=== PATIENT | male | born 1960 | race Caucasian/White ===

== ENCOUNTER 2017-04-26 17:28 | Inpatient (IN) | payer MEDICARE, MEDICAID ==
[~2017-04-26] VITALS: Ht 167.6 cm; Wt 100.7 kg
[2017-04-26 18:12] LABS: BASO # 0.1 x10^3/uL (0.0-0.2); BASO % 1 % (0-3); EOS # 0.1 x10^3/uL (0.0-0.7); EOS % 1 % (0-3); HEMATOCRIT 39.5 % (39.0-53.0); HEMOGLOBIN 13.2 g/dL (13.0-17.5); LYMPH # 2.2 x10^3/uL (1.0-4.8); LYMPH % 20 % (24-48); MEAN CORPUSCULAR HEMOGLOBIN 31 pg (25-35); MEAN CORPUSCULAR HGB CONC 33 g/dL (31-37); MEAN CORPUSCULAR VOLUME 92 fL (79-100); MONO # 0.8 x10^3/uL (0.0-1.1); MONO % 8 % (0-9); NEUT # 7.7 x10^3uL (1.8-7.7); NEUT % 71 % (31-73); PLATELET COUNT 381 x10^3/uL (140-400); RED BLOOD COUNT 4.32 x10^6/uL (4.30-5.70); RED CELL DISTRIBUTION WIDTH 13.1 % (11.5-14.5); WHITE BLOOD COUNT 10.9 x10^3/uL (4.0-11.0)
--- NOTE | 2017-04-26 18:13 | PHYS DOC ---
General Chief Complaint: ABDOMINAL PAIN Stated Complaint: MULTI-ABDOMINAL PAIN Time Seen by MD: 18:11 Source: patient, family Exam Limitations: no limitations Problems: History of Present Illness Initial Comments 56/M to ED c/o epigastric pain. Patient signed out to me at shift change by Dr. Loredo. Patient states last night around 2200 at rest sudden onset epigastric/upper abdominal pain and worsening shortness of breath. No cardiac history, has chronic respiratory failure due to COPD uses 2.5 L O2 nasal cannula at home at all times. No concomitant diaphoresis arm or neck discomfort, no nausea vomiting or diarrhea. On arrival heart rate 189 bpm irregular, blood pressure 103/94 92% on home O2. No prior cardiac workup or tachyarrhythmia PCP is Dr. Talbert. Timing/Duration: other (about 2200 last night) Severity: severe Associated Symptoms: chest pain, malaise, shortness of breath, other Allergies: Coded Allergies: ibuprofen (Verified Allergy, Unknown, 04/26/17) Past Medical History Medical History: COPD, high cholesterol, hypertension, other (chronic respiratory failure uses 2.5 L O2) Surgical History: noncontributory Psychosocial History: anxiety Social History Smoker: cigarettes Alcohol: none Drugs: none Review of Systems Constitutional: denies chills, denies diaphoresis, denies fever, malaise Respiratory: see HPI Cardiovascular: see HPI, denies syncope Gastrointestinal: abdominal pain, denies diarrhea, nausea, denies vomiting Musculoskeletal: denies back pain, denies joint swelling, denies neck pain Psychiatric/Neurological: denies headache, denies numbness, denies paresthesia Hematologic/Lymphatic: denies blood clots, denies easy bleeding, denies easy bruising Physical Exam General Appearance: moderate distress (dyspnea and epigastric discomfort) Ear, Nose, Throat: hearing grossly normal, normal ENT inspection (pursed lip breathing), normal pharynx Neck: non-tender, supple Respiratory: respiratory distress, accessory muscle use, other (decreased breath sounds with wheezes bilaterally and rales at the bases chest nontender) Cardiovascular: normal peripheral pulses, tachycardia, irregularly irregular Gastrointestinal: other (initially soft with mild epigastric tenderness nondistended) Back: no CVA tenderness, no vertebral tenderness Extremities: non-tender, normal inspection, no pedal edema, no calf tenderness Neurologic/Psychiatric: manager ethics II-XII nml as tested, no motor/sensory deficits, alert, normal mood/affect, oriented x 3 Skin: normal color, diaphoresis Orders, Labs, Meds EKG: A. fib with RVR 170 beats per minute interpreted by me. ABG: pH 7.496, pCO2 54.7, pO2 55, BE 19, HCO3 42.2, sO2 90%, fIO2 32 Trop < 0.017, lact 3.2, mag 1.5, BNP 2639 Cardizem 10 mg IV bolus and drip initiated with good rate response coming down to low 100s, blood pressure dropped to systolic 90 and normal saline bolus initiated. 1944: I discussed the patient with on-call geosciences faculty member Dr. Schafer who recommends decreasing Cardizem drip to 10 mg an hour and adding digoxin 2.5 every 6 hours. Recommends inpatient admission at [facility]. 1949: I discussed the patient with Dr. Carmichael who accepts inpatient admission. 2144: EMS arrived to take patient up the hill, on recheck his abdomen is now very distended and exquisitely tender. CT abdomen and pelvis necessary will hold in ED. PATIENT: BERNADINE SOLIS ACCOUNT: [id number] : 1960 LOCATION: ER AGE: 56 SEX: M EXAM STATUS: REG ER ORD. PHYSICIAN: LAVELLE EDWARDS DO REASON: abd pain/distension PROCEDURE: CT ABD PELV W/ IV CONTRST ONLY CT ABD PELV W/ IV CONTRST ONLY dated 04/26/2017 9:53 PM Indication: Abdominal pain, distentionAbdominal pain and distension, mostly left side
no hx of abdominal surgeries in the past
gave Omni 300 75ml iv - tolerated well
no previous for comparison. Comparison: None Technique: Contiguous axial imaging of the abdomen and pelvis performed after the administration of 75 cc Isovue-370. One or more of the following individualized dose reduction techniques were utilized for this examination: 1. Automated exposure control 2. Adjustment of the mA and/or kV according to patient size 3. Use of iterative reconstruction technique Findings: Limited images of lung bases show prominent reticular nodular markings along the bronchovascular bundles of the bilateral lower lobes. There is diffuse bronchial wall thickening. Heart size upper limits of normal. No pleural or pericardial effusion. Liver, spleen, pancreas, adrenal glands, gallbladder and kidneys are unremarkable. No hydronephrosis. Unopacified GI tract normal in caliber and contour. No focal bowel wall thickening. No inflammatory stranding in the mesentery. The appendix is normal in caliber. No ascites or lymphadenopathy. Abdominal aorta normal in caliber. A few scattered diverticula within the distal colon. Images of the pelvis a nondistended urinary bladder. Prostate gland upper limits of normal in size. No free pelvic fluid or pelvic lymphadenopathy. Bone windows show no acute findings. Mild multilevel spondylosis. IMPRESSION: 1. No acute abnormality of abdomen or pelvis. Normal appendix. 2. Diverticulosis with no evidence of acute diverticulitis. 3. Prominent reticular nodular markings at both lung bases with diffuse bronchial wall thickening. Consider bronchopneumonia or atypical infection. Chronic aspiration is another consideration. Electronically signed by: Jose Goode MD (04/26/2017 11:34 PM) [facility] DICTATED AND SIGNED BY: JOSE GOODE MD DATE: 04/26/17 3504 CC: LARRY CARMICHAEL MD; LAVELLE EDWARDS DO ~ Impressions: Atrial Fibrillation with RVR CP Abdominal Pain COPD with CRF uses 2.5L O2 CHF Atypical bronchitis Hypomagnesemia LAVELLE EDWARDS DO Apr 26, 2017 18:13
[2017-04-26] MEDS ORDERED: IV DEXTROSE 5% 100 ML IV ONE (18:14)
[2017-04-26] MEDS ORDERED: dilTIAZem 25 MG/5 ML VIAL IVP ONE (18:15)
[2017-04-26] MEDS ORDERED: dilTIAZem VIAL 125 MG in IV DEXTROSE 5% 100 ML IV ONE (18:15)
[2017-04-26] MEDS ORDERED: ASPIRIN 81 MG TAB.CHEW PO ONE (18:15)
[2017-04-26 18:51] LABS: ALBUMIN 3.5 g/dL (3.4-5.0); ALBUMIN/GLOBULIN RATIO 0.9 (1.0-1.7); CREATININE 0.8 mg/dL (0.7-1.3); MAGNESIUM 1.5 mg/dL (1.8-2.4); POTASSIUM 3.9 mmol/L (3.5-5.1); TOTAL BILIRUBIN 0.2 mg/dL (0.2-1.0); TOTAL PROTEIN 7.4 g/dL (6.4-8.2)
[2017-04-26] MEDS: IPRATRPIUM/ALBUTEROL 0.5/2.5MG 3 ML NEBU. NEB SCH (20:00)
[2017-04-26 20:09] LABS: BGAS PH 7.5 (7.35-7.46)
--- NOTE | 2017-04-26 20:12 | EKG ---
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
[2017-04-26] MEDS ORDERED: DIGOXIN IV 500 MCG/2 ML AMPUL. IV ONE (20:30)
[2017-04-26] MEDS: ENOXAPARIN ** NOTE DOSE ** SYRINGE SQ SCH (21:00)
[2017-04-26] MEDS ORDERED: IV NORMAL SALINE 1,000ML 1,000 ML IV ONE (21:15)
[2017-04-26] MEDS ORDERED: IOHEXOL 300 MG/ML 75 ML VIAL. IV ONE (22:15)
[2017-04-26] MEDS ORDERED: CONTRAST GIVEN MC PRN (22:15)
--- NOTE | 2017-04-26 23:37 | RAD ---
CT ABD PELV W/ IV CONTRST ONLY dated 04/26/2017 9:53 PM Indication: Abdominal pain, distentionAbdominal pain and distension, mostly left side
no hx of abdominal surgeries in the past
gave Omni 300 75ml iv - tolerated well
no previous for comparison. Comparison: None Technique: Contiguous axial imaging of the abdomen and pelvis performed after the administration of 75 cc Isovue-370. One or more of the following individualized dose reduction techniques were utilized for this examination: 1. Automated exposure control 2. Adjustment of the mA and/or kV according to patient size 3. Use of iterative reconstruction technique Findings: Limited images of lung bases show prominent reticular nodular markings along the bronchovascular bundles of the bilateral lower lobes. There is diffuse bronchial wall thickening. Heart size upper limits of normal. No pleural or pericardial effusion. Liver, spleen, pancreas, adrenal glands, gallbladder and kidneys are unremarkable. No hydronephrosis. Unopacified GI tract normal in caliber and contour. No focal bowel wall thickening. No inflammatory stranding in the mesentery. The appendix is normal in caliber. No ascites or lymphadenopathy. Abdominal aorta normal in caliber. A few scattered diverticula within the distal colon. Images of the pelvis a nondistended urinary bladder. Prostate gland upper limits of normal in size. No free pelvic fluid or pelvic lymphadenopathy. Bone windows show no acute findings. Mild multilevel spondylosis. IMPRESSION: 1. No acute abnormality of abdomen or pelvis. Normal appendix. 2. Diverticulosis with no evidence of acute diverticulitis. 3. Prominent reticular nodular markings at both lung bases with diffuse bronchial wall thickening. Consider bronchopneumonia or atypical infection. Chronic aspiration is another consideration. Electronically signed by: Jose Goode MD (04/26/2017 11:34 PM) [facility]
[2017-04-26 23:46] LABS: BARBITURATES NEG (NEG); BENZODIAZEPINES POS (NEG); CANNABINOIDS NEG (NEG); COCAINE NEG (NEG); METHADONE NEG (NEG); OPIATES NEG (NEG); PHENCYCLIDINE NEG (NEG)
[2017-04-26 23:47] LABS: AMPHETAMINE/METHAMPHETAMINE NEG (NEG)
[2017-04-26] MEDS ORDERED: AZITHROMYCIN 500 MG VIAL. IV ONE (23:48)
[2017-04-26] MEDS ORDERED: IV NORMAL SALINE 250ML 250 ML ONE (23:49)
[2017-04-27] VITALS (12 sets, daily range): BP systolic 110–155; BP diastolic 66–95
[2017-04-27] MEDS ORDERED: AZITHROMYCIN 500 MG in IV NORMAL SALINE 250ML 250 ML IV ONE ×2
[2017-04-27] MEDS ORDERED: DIGOXIN IV 500 MCG/2 ML AMPUL. IV ONE ×2 (02:00→08:00)
[2017-04-27] MEDS ORDERED: LORazepam 0.5 MG TABLET PO PRN (02:30)
[2017-04-27] MEDS ORDERED: LISI1TAB5 PO (05:14)
[2017-04-27] MEDS ORDERED: ESCITALOPRAM OX20 MG PO (05:14)
[2017-04-27] MEDS ORDERED: ALEN35TA6 PO (05:14)
[2017-04-27] MEDS ORDERED: DIAZ10TA4 PO (05:14)
[2017-04-27] MEDS: IPRATRPIUM/ALBUTEROL 0.5/2.5MG 3 ML NEBU. NEB SCH ×3 (05:38→15:06)
[2017-04-27] MEDS ORDERED: dilTIAZem VIAL 125 MG in IV DEXTROSE 5% 100 ML IV PRN (06:00)
[2017-04-27 06:39] LABS: BASO # 0.1 x10^3/uL (0.0-0.2); BASO % 1 % (0-3); EOS # 0.1 x10^3/uL (0.0-0.7); EOS % 1 % (0-3); HEMATOCRIT 34.3 % (39.0-53.0); HEMOGLOBIN 11.2 g/dL (13.0-17.5); LYMPH # 1.9 x10^3/uL (1.0-4.8); LYMPH % 18 % (24-48); MEAN CORPUSCULAR HEMOGLOBIN 30 pg (25-35); MEAN CORPUSCULAR HGB CONC 33 g/dL (31-37); MEAN CORPUSCULAR VOLUME 91 fL (79-100); MONO # 0.8 x10^3/uL (0.0-1.1); MONO % 8 % (0-9); NEUT # 7.9 x10^3uL (1.8-7.7); NEUT % 73 % (31-73); PLATELET COUNT 301 x10^3/uL (140-400); RED BLOOD COUNT 3.79 x10^6/uL (4.30-5.70); RED CELL DISTRIBUTION WIDTH 13.4 % (11.5-14.5); WHITE BLOOD COUNT 10.8 x10^3/uL (4.0-11.0)
[2017-04-27 06:44] LABS: ALBUMIN 2.9 g/dL (3.4-5.0); ALBUMIN/GLOBULIN RATIO 0.8 (1.0-1.7); CALCIUM 7.9 mg/dL (8.5-10.1); CREATININE 0.7 mg/dL (0.7-1.3); GFR 116.7; POTASSIUM 3.6 mmol/L (3.5-5.1); TOTAL BILIRUBIN 0.3 mg/dL (0.2-1.0); TOTAL PROTEIN 6.4 g/dL (6.4-8.2)
--- NOTE | 2017-04-27 08:10 | RAD ---
Single view of the Chest 04/26/2017 7:55 PM Indication: upper abdominal pain Comparison: None Findings: There is no focal consolidation or infiltrate identified. There is no effusion or pneumothorax. The cardiomediastinal silhouette and pulmonary vasculature are within normal limits. No osseous abnormality is identified. Impression: No evidence of acute cardiopulmonary process.
[2017-04-27] MEDS ORDERED: MAGNESIUM CHLORIDE ER 64 MG TABLET.ER PO SCH (09:00)
[2017-04-27] MEDS: ENOXAPARIN ** NOTE DOSE ** SYRINGE SQ SCH (09:02)
--- NOTE | 2017-04-27 09:12 | PDOC2 ---
CONSULT Date of Admission DATE: 04/27/17 TIME: 08:54 Reason for Consult: atrial fibrillation with RVR History of Present Illness Mr Carvalho is a 56 year old male who presented to the ED with complaints of abdominal and epigastric pain which started at rest. He denies any exacerbating or relieving factors. On arrival to the ED he was found to be in atrial fibrillation with RVR. He denies any symptoms of palpitations, or racing of his heart. He denies chest pain. He reports dyspnea at baseline. He denies lightheadedness or syncope. He denies congestive symptoms. Past Medical History hypertension, COPD chronically on oxygen 2.5L, MISSY, anxiety, bipolar disorder Past Surgical History: Tonsillectomy Family History Coronary disease in both parents, lung disease in both parents Social History + smoker, quit 2 days ago, denies significant ETOH or illicit drugs Current Medications Current Medications Diltiazem HCl (Cardizem) 20 mg 1X ONCE IVP Last administered on 04/26/17at 18: 25; Start 04/26/17 at 18:15; Stop 04/26/17 at 18:16; Status DC Aspirin (Children'S Aspirin) 324 mg 1X ONCE PO Last administered on 04/26/17at 18:21; Start 04/26/17 at 18:15; Stop 04/26/17 at 18:16; Status DC Diltiazem HCl 125 mg/Dextrose 125 ml @ 10 mls/hr 1X ONCE IV Last administered on 04/26/17at 18:15; Start 04/26/17 at 18:15; Stop 04/27/17 at 06:44 ; Status DC Dextrose 100 ml @ As Directed STK-MED ONCE IV ; Start 04/26/17 at 18:14; Stop 04/26/17 at 18:15; Status DC Diltiazem HCl (Cardizem) 125 mg STK-MED ONCE IV ; Start 04/26/17 at 18:15; Stop 04/26/17 at 18:16; Status DC Albuterol/ Ipratropium (Duoneb) 3 ml RTQID NEB Last administered on 04/27/17at 05:38; Start 04/26/17 at 20:00; Stop 04/27/17 at 19:59 Enoxaparin Sodium (Lovenox 100mg Syringe) 100 mg Q12HR SQ Last administered on 04/26/17at 21:00; Start 04/26/17 at 21:00 Digoxin (Lanoxin) 250 mcg 1X ONCE IV Last administered on 04/26/17at 20:32; Start 04/26/17 at 20:30; Stop 04/26/17 at 20:31; Status DC Sodium Chloride 1,000 ml @ 1,000 mls/hr 1X ONCE IV Last administered on at 21:15; Start 04/26/17 at 21:15; Stop 04/26/17 at 22:14; Status DC Iohexol (Omnipaque 300 Mg/ml) 75 ml 1X ONCE IV Last administered on 04/26/17at 22:32; Start 04/26/17 at 22:15; Stop 04/26/17 at 22:16; Status DC Info (Do NOT chart on this entry -- for MONITORING) 1 each PRN DAILY PRN MC SEE COMMENTS; Start 04/26/17 at 22:15; Stop 04/28/17 at 22:14 Magnesium Chloride (Mag Delay) 64 mg DAILY PO ; Start 04/27/17 at 09:00 Azithromycin 500 mg/Sodium Chloride 250 ml @ 250 mls/hr 1X ONCE IV Last administered on 04/27/17at 01:35; Start 04/27/17 at 00:00; Stop 04/27/17 at 00:59 ; Status DC Azithromycin (Zithromax) 500 mg STK-MED ONCE IV ; Start 04/26/17 at 23:48; Stop 04/26/17 at 23:49; Status DC Sodium Chloride 250 ml @ As Directed STK-MED ONCE .ROUTE ; Start 04/26/17 at 23 :49; Stop 04/26/17 at 23:50; Status DC Digoxin (Lanoxin) 250 mcg 1X ONCE IV Last administered on 04/27/17at 01:46; Start 04/27/17 at 02:00; Stop 04/27/17 at 02:01; Status DC Digoxin (Lanoxin) 250 mcg 1X ONCE IV ; Start 04/27/17 at 08:00; Stop 04/27/17 at 08:01; Status DC Lorazepam (Ativan) 0.5 mg PRN Q8HRS PRN PO ANXIETY / AGITATION Last administered on 04/27/17at 02:22; Start 04/27/17 at 02:30 Diltiazem HCl (Cardizem) 125 mg STK-MED ONCE IV ; Start 04/27/17 at 05:11; Stop 04/27/17 at 05:12; Status DC Diltiazem HCl 125 mg/Dextrose 125 ml @ 0 mls/hr CONT PRN IV SEE I/O RECORD Last administered on 04/27/17at 05:45; Start 04/27/17 at 06:00 Magnesium Sulfate 50 ml @ 25 mls/hr 1X ONCE IV ; Start 04/27/17 at 09:15; Stop 04/27/17 at 11:14 Active Scripts Active Reported Escitalopram Oxalate 20 Mg Tablet 20 Mg PO DAILY Alendronate Sodium 35 Mg Tablet 10 Mg PO DAILY Diazepam 10 Mg Tablet 10 Mg PO TID Lisinopril-Hctz 20-12.5 Mg Tab (Lisinopril/Hydrochlorothiazide) 1 Each Tablet 1 Tab PO DAILY Allergies: Coded Allergies: quetiapine (Verified Allergy, Mild, 04/27/17) ibuprofen (Verified Allergy, Unknown, 04/26/17) Review of System as listed and per HPI otherwise negative PSYCHOLOGICAL ROS: YES: Anxiety, Other (bipolar) HEENT: YES: Snoring Respiratory: YES: Shortness of breath, Other (chronic oxygen use, sleep apnea) Gastrointestinal: YES: Abdominal Pain General: Alert, Oriented X3, Cooperative, No acute distress HEENT: Atraumatic, EOMI Lungs: Other (basilar crackles right> left) Heart: Regular rate, Normal S1, Normal S2 Abdomen: Normal bowel sounds, Soft, No tenderness Extremities: No cyanosis, No edema, Normal pulses Neuro: Normal speech, Strength at 5/5 X4 ext Psych/Mental Status: Mental status NL, Mood NL VITALS Vital Signs Date Time Temp Pulse Resp B/P (MAP) Pulse Ox O2 Delivery O2 Flow Rate FiO2 04/27/17 08:24 92 20 133/80 (97) 93 Nasal Cannula 3.0 04/27/17 00:05 97.6 Labs Laboratory Tests Test 04/26/17 18:00 04/26/17 18:45 04/26/17 21:56 04/26/17 23:23 White Blood Count 10.9 x10^3/uL (4.0-11.0) Red Blood Count 4.32 x10^6/uL (4.30-5.70) Hemoglobin 13.2 g/dL (13.0-17.5) Hematocrit 39.5 % (39.0-53.0) Mean Corpuscular Volume 92 fL (79-100) Mean Corpuscular Hemoglobin 31 pg (25-35) Mean Corpuscular Hemoglobin Concent 33 g/dL (31-37) Red Cell Distribution Width 13.1 % (11.5-14.5) Platelet Count 381 x10^3/uL (140-400) Neutrophils (%) (Auto) 71 % (31-73) Lymphocytes (%) (Auto) 20 % (24-48) Monocytes (%) (Auto) 8 % (0-9) Eosinophils (%) (Auto) 1 % (0-3) Basophils (%) (Auto) 1 % (0-3) Neutrophils # (Auto) 7.7 x10^3uL (1.8-7.7) Lymphocytes # (Auto) 2.2 x10^3/uL (1.0-4.8) Monocytes # (Auto) 0.8 x10^3/uL (0.0-1.1) Eosinophils # (Auto) 0.1 x10^3/uL (0.0-0.7) Basophils # (Auto) 0.1 x10^3/uL (0.0-0.2) Prothrombin Time 9.5 SEC (9.4-11.4) Prothromb Time International Ratio 0.9 (0.9-1.1) Activated Partial Thromboplast Time 25 SEC (23-33) Sodium Level 136 mmol/L (136-145) Potassium Level 3.9 mmol/L (3.5-5.1) Chloride Level 90 mmol/L (98-107) Carbon Dioxide Level 48 mmol/L (21-32) Anion Gap 1 (6-14) Blood Urea Nitrogen 16 mg/dL (8-26) Creatinine 0.8 mg/dL (0.7-1.3) Estimated GFR (Cockcroft-Gault) 100.0 BUN/Creatinine Ratio 20 (6-20) Glucose Level 100 mg/dL (70-99) Lactic Acid Level 3.2 mmol/L (0.4-2.0) 2.1 mmol/L (0.4-2.0) Calcium Level 9.0 mg/dL (8.5-10.1) Magnesium Level 1.5 mg/dL (1.8-2.4) Total Bilirubin 0.2 mg/dL (0.2-1.0) Aspartate Amino Transf (AST/SGOT) 18 U/L (15-37) Alanine Aminotransferase (ALT/SGPT) 20 U/L (16-63) Alkaline Phosphatase 99 U/L (46-116) Creatine Kinase 100 U/L (39-308) Creatine Kinase MB (Mass) 2.7 ng/mL (0.0-3.6) Creatine Kinase MB Relative Index 2.7 % (0-4) Troponin I Quantitative < 0.017 ng/mL (0-0.055) OY-Lgg-U-Type Natriuretic Peptide 2639 pg/mL (0-124) Total Protein 7.4 g/dL (6.4-8.2) Albumin 3.5 g/dL (3.4-5.0) Albumin/Globulin Ratio 0.9 (1.0-1.7) Lipase 130 U/L (73-393) Blood Gas pH 7.50 (7.35-7.46) Blood Gas PCO2 55 mmHg (35-46) Blood Gas PO2 55 mmHg (80-100) Blood Gas HCO3 42 mmol/L (21-28) Arterial Bld O2 Saturation (Calc) 90 % (92-99) FiO2 32 % Urine Opiates Screen Neg (NEG) Urine Methadone Screen Neg (NEG) Urine Barbiturates Neg (NEG) Urine Phencyclidine Screen Neg (NEG) Urine Amphetamine/Methamphetamine Neg (NEG) Urine Benzodiazepines Screen Pos (NEG) Urine Cocaine Screen Neg (NEG) Urine Cannabinoids Screen Neg (NEG) Urine Ethyl Alcohol Neg (NEG) Test 04/27/17 00:30 04/27/17 05:35 Troponin I Quantitative < 0.017 ng/mL (0-0.055) < 0.017 ng/mL (0-0.055) White Blood Count 10.8 x10^3/uL (4.0-11.0) Red Blood Count 3.79 x10^6/uL (4.30-5.70) Hemoglobin 11.2 g/dL (13.0-17.5) Hematocrit 34.3 % (39.0-53.0) Mean Corpuscular Volume 91 fL (79-100) Mean Corpuscular Hemoglobin 30 pg (25-35) Mean Corpuscular Hemoglobin Concent 33 g/dL (31-37) Red Cell Distribution Width 13.4 % (11.5-14.5) Platelet Count 301 x10^3/uL (140-400) Neutrophils (%) (Auto) 73 % (31-73) Lymphocytes (%) (Auto) 18 % (24-48) Monocytes (%) (Auto) 8 % (0-9) Eosinophils (%) (Auto) 1 % (0-3) Basophils (%) (Auto) 1 % (0-3) Neutrophils # (Auto) 7.9 x10^3uL (1.8-7.7) Lymphocytes # (Auto) 1.9 x10^3/uL (1.0-4.8) Monocytes # (Auto) 0.8 x10^3/uL (0.0-1.1) Eosinophils # (Auto) 0.1 x10^3/uL (0.0-0.7) Basophils # (Auto) 0.1 x10^3/uL (0.0-0.2) Sodium Level 136 mmol/L (136-145) Potassium Level 3.6 mmol/L (3.5-5.1) Chloride Level 95 mmol/L (98-107) Carbon Dioxide Level 40 mmol/L (21-32) Anion Gap 1 (6-14) Blood Urea Nitrogen 15 mg/dL (8-26) Creatinine 0.7 mg/dL (0.7-1.3) Estimated GFR (Cockcroft-Gault) 116.7 BUN/Creatinine Ratio 21 (6-20) Glucose Level 85 mg/dL (70-99) Calcium Level 7.9 mg/dL (8.5-10.1) Magnesium Level 1.4 mg/dL (1.8-2.4) Total Bilirubin 0.3 mg/dL (0.2-1.0) Aspartate Amino Transf (AST/SGOT) 17 U/L (15-37) Alanine Aminotransferase (ALT/SGPT) 17 U/L (16-63) Alkaline Phosphatase 75 U/L (46-116) GS-Nyi-N-Type Natriuretic Peptide 1919 pg/mL (0-124) Total Protein 6.4 g/dL (6.4-8.2) Albumin 2.9 g/dL (3.4-5.0) Albumin/Globulin Ratio 0.8 (1.0-1.7) Images EKG - atrial fibrillation with RVR, no acute ischemic changes CXR - Impression: No evidence of acute cardiopulmonary process. Assessment/Plan 1. Atrial fibrillation with RVR - now sinus rhythm. [id number] =1. Change cardizem to PO. Aspirin 325mg daily. Replace magnesium. Check echo and TSH. Outpatient MCT for atrial fibrillation burden. 2. epigastric pain - Zoran negative x 3. Await echo. outpatient MPI 3. COPD - mgmt as per PCP 4. hypertension - controlled. Continue cardizem, stop lisinopril. Re- evaluate and resume as outpatient if needed. 5. family history of CAD 6. unknown lipid status - check lipids. statin as indicated. Problems: RAYN FRANCIS APRN Apr 27, 2017 09:12
[2017-04-27] MEDS ORDERED: MAGNESIUM SULFATE 2GM 50 ML IV ONE (09:15)
[2017-04-27] MEDS ORDERED: ASPIRIN ENTERIC COATED 325 MG TABLET.DR. PO SCH ×2 (10:00→16:00)
[2017-04-27] MEDS ORDERED: CITALOPRAM 20 MG TABLET. PO SCH (10:00)
[2017-04-27] MEDS ORDERED: diazePAM 5 MG TABLET PO SCH (12:30)
--- NOTE | 2017-04-27 13:52 | EKG ---
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
--- NOTE | 2017-04-27 17:16 | CARD ---
MR#: [id number] Date of Study: 04/27/2017 Ordering Physician: RYAN FRANCIS, Referring Physician: LARRY CARMICHAEL, Tech: LUKE Monson APPROVED REPORT EXAM: Two-dimensional and M-mode echocardiogram with Doppler and color Doppler. Other Information Quality : Fair INDICATION Atrial Fibrillation 2D DIMENSIONS Left Atrium(2D)3.8 (1.6-4.0cm)IVSd1.1 (0.7-1.1cm) Aortic Root(2D)3.0 (2.0-3.7cm)LVDd4.4 (3.9-5.9cm) LVOT Diameter2.0 (1.8-2.4cm)PWd1.2 (0.7-1.1cm) IVSs0.1 (0.8-1.2cm)LVDs2.7 (2.5-4.0cm) FS (%) 40.3 %SV63.8 ml LVEF(%)71.1 (>50%) Aortic Valve AoV Peak Guillaume.168.9cm/Christopher Peak GR.11.4mmHg LVOT Peak Guillaume.73.6cm/sAVA (VMAX)1.31cm2 Mitral Valve MV E Sjddnnyb51.7cm/sMV DECEL [id number] MV A Puybhabx02.7cm/sE/A Ratio1.0 LEFT VENTRICLE The left ventricle is normal size. There is borderline concentric left ventricular hypertrophy. The l eft ventricular systolic function is normal and the ejection fraction is within normal range. The Eje ction Fraction is 60-65%. There is normal LV segmental wall motion. RIGHT VENTRICLE The right ventricle is normal size. There is normal right ventricular wall thickness. The right ventr icular systolic function is normal. ATRIA The left atrium size is normal. The right atrium size is normal. The interatrial septum is intact wit h no evidence for an atrial septal defect or patent foramen ovale as noted on 2-D or Doppler imaging. AORTIC VALVE The aortic valve is normal in structure and function. Doppler and Color Flow revealed no significant aortic regurgitation. There is no significant aortic valvular stenosis. MITRAL VALVE The mitral valve is normal in structure and function. There is no mitral valve stenosis. Doppler and Color Flow revealed no mitral valve regurgitation noted. TRICUSPID VALVE The tricuspid valve is normal in structure and function. Doppler and Color Flow revealed trace tricus pid regurgitation. There is no tricuspid valve stenosis. PULMONIC VALVE Doppler and Color Flow revealed no pulmonic valvular regurgitation. There is no pulmonic valvular dejuan nosis. GREAT VESSELS The aortic root is normal in size. The IVC is normal in size and collapses >50% with inspiration. PERICARDIAL EFFUSION There is no pleural effusion. There is no evidence of significant pericardial effusion. Critical Notification Critical Value: No <Conclusion> The left ventricular systolic function is normal and the ejection fraction is within normal range. Th e Ejection Fraction is 60-65%. There is normal LV segmental wall motion. Signed by : José Manuel Schafer, Electronically Approved : 04/27/2017 17:15:45
[2017-04-27] MEDS ORDERED: ASPI-630 PO (17:30)
[2017-04-27] MEDS ORDERED: DILT120C80 PO (17:31)
[2017-04-27] MEDS ORDERED: DILT180C2 PO (17:31)
--- NOTE | 2017-04-27 19:42 | HP ---
ADMIT DATE: 04/26/2017 HISTORY OF PRESENT ILLNESS: A 56-year-old male came in through the Emergency Room. The patient is complaining of some epigastric pain started at rest; however, began to feel his heart fluttering. The patient came in through the Emergency Room, was noted his heart rate was 180 with atrial fibrillation with rapid ventricular response. The patient was admitted and placed on a diltiazem drip and digoxin to bring down, in consult with Dr. Schafer. PAST MEDICAL HISTORY: Hypertension; COPD, chronic, on oxygen 2.5 liters; anxiety, bipolar disease and MISSY. PAST SURGICAL HISTORY: Tonsillectomy. FAMILY HISTORY: Coronary artery disease in both parents. SOCIAL HISTORY: The patient is a smoker, claims he quit 2 days ago. Denies any illicit drugs or alcohol use other than occasional. The patient's other past medical history is adenoidectomy, hypertension, sleep apnea, chronic back pain, psychiatric disorders, history of cancer, pneumococcal vaccine is up to date and as noted lung disease and heart disease in the family. ALLERGIES: IBUPROFEN AND QUETIAPINE. CODE STATUS: The patient is a full code. REVIEW OF SYSTEMS: The patient has generalized weakness, fluttering, and diaphoretic. Other than that, denied chest pain per se. Denied nausea, vomiting, diarrhea or constipation. Did have diffuse epigastric discomfort, which has resolved. PHYSICAL EXAMINATION: GENERAL: On exam, white male, heavy gomez. VITAL SIGNS: Blood pressure 155/80, respiratory rate 24, pulse 92 presently, although when he came in was upwards of 190 came down into the 80s, respiratory rate 18. He is afebrile on 2.5 liters. HEENT: The patient's head was atraumatic and normocephalic. Eyes: PERRLA without jaundice. The mouth and throat were normal. NECK: Supple, without JVD or thyromegaly. LUNGS: Diminished, but clear. ABDOMEN: Soft, nontender, no rebounding or guarding. Positive bowel sounds, no hepatosplenomegaly was noted. EXTREMITIES: No clubbing, cyanosis or edema. NEUROLOGIC: The patient was alert and oriented x 3. Speech fluent, spontaneous, and appropriate. Cranial nerves 2-12 grossly intact. The patient otherwise CBC showed a slightly low hemoglobin of 11.2 and hematocrit of 34. Chemistries basically are unremarkable except for a low calcium of 7.9, but did have a low albumin ____ hypocalcemia. Magnesium low at 1.4. BNP elevated at 1900. Drug screen is positive for benzodiazepines. PLAN: The patient will be monitored carefully, placed in the unit, placed on IV Cardizem and digoxin. Magnesium was also supplemented. Apparently he had an echocardiogram, Cardiology reviewed the patient, discharged the patient. He will be followed up as an outpatient. Echocardiogram shows a 60% to 65% ejection fraction. Otherwise, he is resting fairly comfortably and apparently wanted to be discharged. We will try to catch up to him and give him some antibiotic for the possibility of a lung infection. IMPRESSION: Atrial fibrillation with rapid ventricular response, hypomagnesemia, chronic obstructive pulmonary disease with chronic hypoxia. Otherwise, continue to be monitored carefully, make further evaluation as an outpatient. LARRY CARMICHAEL MD DR: MARY/carlos enrique JOB#: [id number] / [id number]
[2017-04-28] MEDS ORDERED: ALENDRONATE SODIUM 35 MG TABLET PO SCH (09:00)
--- NOTE | 2017-04-30 00:04 | DS ---
DATE OF DISCHARGE: 04/27/2017 HOSPITAL COURSE: A 56-year-old male came in through the Emergency Room complaining of epigastric pain. However, it was found that he was in atrial fibrillation with rapid ventricular response and also low magnesium as well as COPD with hypoxia. The patient was seen in consultation with Dr. Schafer. The patient was placed on some digitalis, increased his magnesium level, and patient came down into a normal rhythm. The patient made excellent progress during the rest of his hospitalization. He will be continued to be monitored as an outpatient and make further evaluation. The patient made good progress. He will be discharged home. IMPRESSION: Atrial fibrillation with rapid ventricular response new onset, anemia of chronic disease, low magnesium (hypomagnesemia) and abdominal pain, unknown etiology at the present time, may have had an atypical pneumonia. He was placed on doxycycline at times of discharge. PLAN: He will follow up in 7-10 days. See [facility]AD. Decreased activity. Diabetic diet. LARRY CARMICHAEL MD DR: MARY/carlos enrique JOB#: [id number] / [id number]
== END 2017-04-27 18:56 | disposition home or self-care (01) | DRG 309 ==
LOC: ER 17:28 → UNDOADMIN 20:14 → ICU 20:14
PROVIDERS: ADMIT Family Medicine; ATTEND Family Medicine
DX: I48.91 Unspecified atrial fibrillation (principal); J96.11 Chronic respiratory failure with hypoxia; I11.0 Hypertensive heart disease with heart failure; I50.9 Heart failure, unspecified; E83.42 Hypomagnesemia; Z99.81 Dependence on supplemental oxygen; F17.210 Nicotine dependence, cigarettes, uncomplicated; F31.9 Bipolar disorder, unspecified; G47.33 Obstructive sleep apnea (adult) (pediatric); M54.9 Dorsalgia, unspecified; G89.29 Other chronic pain; F41.9 Anxiety disorder, unspecified; J44.9 Chronic obstructive pulmonary disease, unspecified; Z79.82 Long term (current) use of aspirin; Z82.49 Family history of ischemic heart disease and other diseases of the circulatory system; Z88.8 Allergy status to other drugs, medicaments and biological substances; Z90.49 Acquired absence of other specified parts of digestive tract
CPT/HCPCS: 36415; 36600; 71045; 74177; 80053; 80061; 80307; 82553; 82803; 83605; 83690; 83735; 83880; 84443; 84484; 85025; 85610; 85730; 87641; 93005; 93306; 94640; 96365; 96366; 96375; 96376; 99406; J0456; J1160; J1650; J3475; J3490; J7050; J7620; Q9967; 99285-25; G0479; J7030